=== PATIENT | female | born 1995 | race American Indian/Alaskan Native ===

== ENCOUNTER 2021-04-09 19:44 | Emergency (ER) | payer BC ==
[2021-04-09 20:37] VITALS: BP 138/65
--- NOTE | 2021-04-09 21:00 | XRay Report ---
CHEST 2 VIEWS INDICATION: CHEST PAIN. COMPARISON: None. FINDINGS: Support devices: None. Heart: Within normal limits. Lungs/Pleura: No acute air space or interstitial disease. No significant pleural effusion. IMPRESSION: No acute findings. Signer Name: Sumeet Brooks MD Signed: 04/09/2021 8:55 PM Workstation Name: [id number]
[2021-04-09] MEDS ORDERED: DICYCLOMINE 10 MG/5 ML ORAL LIQD PO ONE (22:35)
[2021-04-09] MEDS ORDERED: KETOROLAC 10 MG TAB PO ONE (22:36)
[2021-04-09] MEDS ORDERED: LIDOCAINE VISCOUS 2% 15 ML ORAL LIQD PO ONE (22:36)
[2021-04-09] MEDS ORDERED: ALUM-MAG HYDROXIDE-SIMETHICONE 200-200-20MG/5ML ORAL LIQD 30 ML PO ONE (22:36)
--- NOTE | 2021-04-10 00:36 | Emergency Department Report ---
ED General Adult HPI - General Chief complaint: Chest Pain Stated complaint: CHEST PAIN Time Seen by Provider: 04/09/21 22:16 Source: patient Mode of arrival: Ambulatory Limitations: No Limitations - History of Present Illness Initial comments: 25-year-old black female patient with past medical history of asthma presents to the emergency department for evaluation of mid and right-sided chest pain that started this morning while she was getting dressed for work. She states that pain started out of nowhere, felt like pressure, and was 6 out of 10 at its worse. She denies shortness of breath nausea vomiting, but has had some dizziness. She denies any family history of CAD. She is currently on her menstrual period. Pain is reproducible and nonradiating. -: Sudden, hour(s) Location: chest Radiation: non-radiation Severity scale (0 -10): 6 Quality: aching, sharp Consistency: intermittent Worsens with: movement Associated Symptoms: other (Intermittent dizziness) Treatments Prior to Arrival: none - Related Data Allergies Allergy/AdvReac Type Severity Reaction Status Date / Time No Known Allergies Allergy Unverified 04/09/21 20:33 ED Review of Systems ROS: Stated complaint: CHEST PAIN Other details as noted in HPI Comment: All other systems reviewed and negative Constitutional: denies: chills, diaphoresis, fever, malaise, weakness Eyes: denies: eye pain, eye discharge ENT: denies: ear pain, throat pain, congestion Respiratory: denies: cough, orthopnea, shortness of breath, SOB with exertion, SOB at rest, wheezing Cardiovascular: chest pain. denies: palpitations, dyspnea on exertion, orthopnea, edema, syncope, paroxysmal nocturnal dyspnea Endocrine: no symptoms reported Gastrointestinal: denies: abdominal pain, nausea, vomiting, diarrhea, hematemesis, melena, hematochezia Genitourinary: denies: urgency, dysuria, frequency, hematuria, discharge, abnormal menses, dyspareunia Musculoskeletal: denies: back pain, joint swelling, arthralgia, myalgia Skin: denies: rash, lesions Neurological: denies: headache, weakness, numbness, paresthesias, confusion, abnormal gait Psychiatric: denies: anxiety, depression ED Past Medical Hx - Past Medical History Previous Medical History?: Yes Hx Asthma: Yes - Surgical History Past Surgical History?: No ED Physical Exam - General Limitations: No Limitations General appearance: alert, in no apparent distress - Head Head exam: Present: atraumatic, normocephalic - Eye Eye exam: Present: normal appearance. Absent: conjunctival injection - Neck Neck exam: Present: normal inspection. Absent: tenderness - Respiratory Respiratory exam: Present: normal lung sounds bilaterally, chest wall tenderness. Absent: respiratory distress, wheezes, rales, rhonchi, stridor, accessory muscle use - Cardiovascular Cardiovascular Exam: Present: regular rate, normal rhythm, normal heart sounds - GI/Abdominal GI/Abdominal exam: Present: soft, normal bowel sounds. Absent: distended, tenderness, guarding, rebound, rigid - Extremities Exam Extremities exam: Present: normal inspection, full ROM - Back Exam Back exam: Present: normal inspection, full ROM. Absent: tenderness, CVA tenderness (R), CVA tenderness (L), paraspinal tenderness, vertebral tenderness - Neurological Exam Neurological exam: Present: alert, oriented X3 - Psychiatric Psychiatric exam: Present: normal affect, normal mood - Skin Skin exam: Present: warm, dry, intact, normal color ED Course Vital Signs 04/09/21 04/09/21 04/10/21 20:35 22:48 01:01 Temperature 98.1 F Pulse Rate 86 80 Respiratory 18 14 20 Rate Blood Pressure 138/65 O2 Sat by Pulse 95 98 Oximetry - Reevaluation(s) Reevaluation #1: Chest pain resolved. 04/10/21 01:00 ED Medical Decision Making - EKG Data -: EKG Interpreted by Hi EKG shows normal: sinus rhythm Rate: normal - EKG Data When compared to previous EKG there are: previous EKG unavailable Interpretation: no acute changes, normal EKG 04/10/21 02:26 No acute ischemic changes noted - Radiology Data Radiology results: report reviewed, image reviewed Chest x-ray IMPRESSION: No acute findings. - Medical Decision Making 25-year-old black female patient with past medical history of asthma presents to the emergency department for evaluation of mid and right-sided chest pain that started this morning while she was getting dressed for work. She states that pain started out of nowhere, felt like pressure, and was 6 out of 10 at its worse. She denies shortness of breath nausea vomiting, but has had some dizziness. She denies any family history of CAD. She is currently on her menstrual period. Pain is reproducible and nonradiating No acute ischemic changes noted on EKG. Chest x-ray without any abnormalities. Pain relieved after GI cocktail and Toradol. Pain to the right chest and is consistent with chest wall tenderness. Patient will be treated with as needed Tylenol and Motrin. She was advised to follow-up with her primary care provider if no improvement or worsening symptoms. She was advised to return to the emergency room if she developed worsening chest pain shortness of breath nausea vomiting worsening dizziness. Plan of care was discussed with patient, and she verbalized understanding of and agreement with. Critical care attestation.: If time is entered above; I have spent that time in minutes in the direct care of this critically ill patient, excluding procedure time. ED Disposition Clinical Impression: Chest wall tenderness Disposition: HOME / SELF CARE / HOMELESS Is pt being admited?: No Does the pt Need Aspirin: No Condition: Stable Instructions: Chest Wall Pain, [id number], Nonspecific Chest Pain, Adult Additional Instructions: Take Tylenol and ibuprofen as needed for pain. Follow-up with primary care provider for further evaluation. Return to the ED for worsening symptoms. Referrals: REYNALDO BYRD MD [Primary Care Provider] - 3-5 Days IRAIS SAENZ MD [Referring] - 3-5 Days Time of Disposition: 00:36
--- NOTE | 2021-04-14 17:07 | Electrocardiograph Report ---
[facility] Test Date: 2021-04-10 Test Time: 00:09:32 Pat Name: IRWIN RODRÍGUEZ Department: Room: Gender: F [employer]: MERY : 1995 Requested By: MAKI PARRA Order Number: [id number] Reading MD: Amos Berman Measurements Intervals [place] Rate: 69 P: 53 AK: 169 QRS: 55 QRSD: 80 T: 33 QT: 395 QTc: 422 Interpretive Statements Sinus rhythm No previous ECG available for comparison Electronically Signed On 04-14-2021 17:07:04 EST by Amos Berman
== END 2021-04-10 01:00 | disposition home or self-care (01) ==
LOC: ED 19:44
DX: R07.89 Other chest pain (principal); J45.909 Unspecified asthma, uncomplicated
CPT/HCPCS: 71046; 93005; 93010; 99283